=== PATIENT | male | born 1955 | race Native Hawaiian/Other Pacific Islander ===

== ENCOUNTER 2016-07-08 14:09 | Emergency (ER) | payer OTHER ==
[~2016-07-08] VITALS: Ht 177.8 cm; Wt 51.7 kg
[~2016-07-08 14:09] MED LIST: AMLO5TAB PO; ASPIRIN LOW DOS81 MG PO; CREON24000 UNT OR; FOLI1TAB26 PO; INSUINJ20 SC; KLOR-CON 1010 MEQ OR; MAG OXIDE420 MG OR; METF500T PO; METOPROLOL25 M1 OR; MORP15TA10 PO; MULTI VITAMN OR; MULTIVITAMIN OR; NEURONTIN 100M100 MG OR; NOVOLIN N1 ML SC; OMEP20CA PO; OMEPRAZOLE20 M1 PO; OXYC5TAB53 PO; POLY3350 PO; ROBAXIN500 MG PO; THIA100T8 PO; TYLENOL325 MG OR; ZOFRAN8 MG PO
[2016-07-08 14:15] VITALS: BP 129/94; TEMP 98.5
== END 2016-07-08 14:52 | disposition home or self-care (01) ==
LOC: ED 14:09
DX: K86.1 Other chronic pancreatitis (principal); S62.91XA Unspecified fracture of right hand, initial encounter for closed fracture
CPT/HCPCS: 96372; 99282; J1885

== ENCOUNTER 2017-05-04 07:06 | Inpatient (IN) | payer OTHER ==
[2017-05-04] VITALS (19 sets, daily range): BP systolic 113–160; BP diastolic 69–97; TEMP 97–98.5; Ht 177.8 cm; Wt 54.2 kg
[~2017-05-04] VITALS: Ht 177.8 cm; Wt 54.2 kg
[2017-05-04] MEDS ORDERED: LANTUS100 MG/ML SC (07:23)
[2017-05-04 07:50] LABS: PLATELET COUNT 417 K/uL (142-355)
[2017-05-04 07:52] LABS: POTASSIUM 4.5 mmol/L (3.6-5.2)
[2017-05-04] MEDS ORDERED: PREG75CA PO (09:50)
[2017-05-04] MEDS ORDERED: OMEPRAZOLE20 M2 PO (09:51)
--- NOTE | 2017-05-04 13:05 | NUR ---
PT TO ICU2 VIA WC FROM ER ADMITTED TO THE HOSPITALIST. PT WITH SL 20G INSYTE RAC SALINE LOCKED.
--- NOTE | 2017-05-04 14:02 | NUR ---
INSULIN LOADING DOSE 5U IV GIVEN PER PROTOCOL,INSULIN DRIP STARTED AT 8U/HR.
--- NOTE | 2017-05-04 15:10 | NUR ---
PT WITH BS 245,CLARIFIED CHANGE ORDER FOR D51/2NS AT [address] JEFFERSON.
--- NOTE | 2017-05-04 15:35 | NUR ---
IV 18G INSYTE INSERTED R HAND X 2 STICKS,LABS DRAWN.
[2017-05-04 16:14] LABS: POTASSIUM 4.5 mmol/L (3.6-5.2)
--- NOTE | 2017-05-04 16:16 | NUR ---
PT SCATCHING AT HIS FEET,PT STATES'ITS BECAUSE OF MY NEUROPATHY'.PT'S HOME MED FOR THIS IS [facility].REPORTED TO LACEY WHEATLEY LPN/ASAEL FOR JEFFY MERRITT BIOMEDICAL ELECTRONICS TECHNICIAN.
--- NOTE | 2017-05-04 16:31 | NUR ---
LABS CALLED TO DR JEFFERSON. ORDER TO D/C INSULIN DRIP START NS AT 50 ML/HR KVO. WILL ORDER A DIET & START HOME INSULIN.
--- NOTE | 2017-05-04 17:05 | NUR ---
PT MEDICATED FOR ITCHING FEET WITH BENADRYL 25 MG IVP.
--- NOTE | 2017-05-04 18:02 | NUR ---
PT WITH BS 66,PT EATING SUPPER.NO NAUSEA & C/O PAIN.
--- NOTE | 2017-05-04 20:02 | NUR ---
PT AWAKE AND ORIENTED WATCHING TV IN BED, DENIES ANY PAIN OR PROBLEMS AT THIS TIME, TALKATIVE WITH COTTON PROGRAM TECHNICIAN, RESP RATE NONLABORED ON ROOM AIR, URINAL AT BEDSIDE, SKIN WARM AND DRY, 20G IV INTACT TO R AC WITH NS INFUSING AT 50ML/HR AND 18G IV LOCK INTACT TO L HAND WITH NO PROBLEMS NOTED, ENCOURAGED TO CALL NEEDED, RAILS UP X2, BED IN LOW POSITION, WILL MONITOR CLOSELY.
[2017-05-04 20:34] LABS: POTASSIUM 4.4 mmol/L (3.6-5.2)
[2017-05-05] VITALS (23 sets, daily range): BP systolic 82–152; BP diastolic 62–99; TEMP 97.8–98.8
[2017-05-05 01:28] LABS: POTASSIUM 3.9 mmol/L (3.6-5.2)
--- NOTE | 2017-05-05 01:29 | NUR ---
01041BK AWAKE WATCHING TV WITH NO S/S OF PAIN OR DISTRESS NOTED, RESP RATE NONLABORED, ON ROOM AIR, 20G IV INTACT TO R AC WITH NS INFUSING AT 50M/HR AND 18G IV LOCK INTACT TO L HAND WITH NO PROBLEMS NOTED, URINAL AT BEDSIDE, DENIES ANY PAIN OR PROBLEMS AT THIS TIME, WILL MONITOR, RAILS UP, BED IN LOW POSITION. LABS DRAW PER ORDERS, PT TOLERATED WITH NO PROBLEMS.
--- NOTE | 2017-05-05 02:02 | NUR ---
0150SPOKE WITH DR. JEFFERSON ABOUT PT'S LAB RESULTS. ACETONE LEVEL IS SMALL. GLUCOSE 245. NEW ORDER TO GET ANOTHER ACETONE LEVEL WITH MORNING LABS. T.O. R&V DR. JEFFERSON/SHAMAR COREY RN.
--- NOTE | 2017-05-05 02:04 | NUR ---
05/04/17 AT 2208PT AWAKE WATCHING TV, NO S/S OF PAIN OR DISTRESS NOTED, BOTH IV SITES INTACT, RESP RATE NONLABORED, ALERT AND ORIENTED, WILL MONITOR, RAILS UP, BED IN LOW POSITION, ENCOURAGED TO CALL NEEDED.
--- NOTE | 2017-05-05 02:07 | NUR ---
PT RESTING ON L SIDE WITH EYES CLOSED, NO S/S OF PAIN OR DISTRESS NOTED, RESP RATE NONLABORED ON ROOM AIR, IV LOCK INTACT TO L HAND AND IV INTACT TO R AC WITH NS INFUSING AT 50ML/HR, TRANSPORTATION PLANNING ENGINEER IN USE, URINAL AT BEDSIDE, WILL MONITOR CLOSELY, RAILS UP, BED IN LOW POSITION.
--- NOTE | 2017-05-05 03:01 | NUR ---
DR. JEFFERSON IN TO CHECK ON PT. NO NEW ORDERS AT THIS TIME. PT RESTING ON L SIDE WITH EYES CLOSED, NO DISTRESS NOTED, WILL CONTINUE TO MONITOR CLOSELY, RAILS UP, BED IN LOW POSITION.
[2017-05-05 04:47] LABS: PLATELET COUNT 387 K/uL (142-355)
[2017-05-05 05:01] LABS: POTASSIUM 3.8 mmol/L (3.6-5.2)
--- NOTE | 2017-05-05 05:06 | NUR ---
PT STATES HE IS FEELING BETTER AND IS NOT SWEATING ANY MORE, SKIN COLOR TO FACE IS COMING BACK AND IS NOW PINK. HEART RATE 90 AND IRREGULAR. STAFF REMAINS AT BEDSIDE, WILL MONITOR CLOSEY, RAILS UP, BED IN LOW POSITION. PT PT NOW WATCHING TV. IV SITES INTACT.
--- NOTE | 2017-05-05 05:14 | NUR ---
0430EKG COMPLETED, RESULTS STATE ATRIAL FIB WITH RAPID V-RATE, RBBB AND LAFB. RATE OF 193. PT STATES HE IS STILL FEELING FINE. NO S/S OF DISTRESS NOTED.
--- NOTE | 2017-05-05 05:16 | NUR ---
0419NOTED CHANGE IN RHYTHM ON CASH MANAGEMENT SPECIALIST, RATE IN 120-140S, NO S/S OF DISTRESS NOTED, PT STATES HE FEELS FINE AND HIS HEART DOES NOT FEEL FUNNY OR LIKE IT IS RACING. SKIN WARM, PINK, AND DRY.
--- NOTE | 2017-05-05 05:19 | NUR ---
0432WRITER SPOKE WITH DR. JEFFERSON ABOUT CHANGE IN ON ATHLETICS DIRECTOR AND RESULTS OF EKG, NEW ORDER FOR STAT MAGNESIUM LEVEL. T.O. R&V DR. JEFFERSON/SHAMAR COREY RN.
--- NOTE | 2017-05-05 05:21 | NUR ---
0440LAB WORK DRAWN. PT NOW PALE AND SWEAT VISIBLE ON HIS NECK AND FOREHEAD. STATES HE FEELS OKAY JUST FEELS LIKE HE IS SWEATING ALOT. WHEN ASKED STATES HE DOES NOT FEEL LIKE HIS SUGAR IS LOW. GAVE PT 120ML ORANGE JUICE JUST INCASE HIS SUGAR IS LOW. HEART RATE REMAINS ELEVATED.
--- NOTE | 2017-05-05 05:33 | NUR ---
0520MAGNESIUM LEVEL AND MORNING LABS RESULTS ARE NOW BACK. REPORTED NORMAL MAG OF 2.0, NEGATIVE ACETONE LEVEL, AND GLUCOSE LEVEL OF [address] JEFFERSON. STATES JUST TO FEED PT AND MONITOR. 0525PT NOW SITTING UP ON SIDE OF BED, BROUGHT SNACK. ATE PACK OF ERIN CRACKERS AND DRANK A MILK. STATES HE CONTINUES TO FEEL BETTER. HEART RATE OF 85, RESP RATE NORMAL AND NONLABORED, O2 SAT 97% ON ROOM AIR. WILL CONTINUE TO MONITOR CLOSELY.
--- NOTE | 2017-05-05 09:15 | NUR ---
GILBERT/PLUG OVERWRAP MACHINE TENDER IN TO SEE PT
[2017-05-05 14:19] LABS: POTASSIUM 4.2 mmol/L (3.6-5.2)
--- NOTE | 2017-05-05 22:13 | NUR ---
PT WAS TRANSFERRED TO ROOM 1113. PT AMBULATED . REPORT WAS GIVEN TO Korin SPENCE RN.
[2017-05-06] VITALS: BP 177/79; TEMP 98.5
[2017-05-06 04:00] VITALS: BP 124/70; TEMP 97.9
[2017-05-06 05:19] LABS: PLATELET COUNT 233 K/uL (142-355)
[2017-05-06 05:43] LABS: POTASSIUM 4.1 mmol/L (3.6-5.2)
[2017-05-06 08:37] VITALS: BP 136/84; TEMP 99
[2017-05-06 12:37] VITALS: BP 118/86; TEMP 98.4
--- NOTE | 2017-05-06 16:21 | NUR ---
IV TO L HAND D/C'D WITH TIP INTACT. PRESSURE DRESSING APPLIED. IV INFILTRATED. IVFS INFUSING VIA IV TO RAC.
[2017-05-06 17:32] VITALS: BP 117/66; TEMP 98.5
[2017-05-06 20:00] VITALS: BP 133/70; TEMP 98.4
[2017-05-07] VITALS: BP 119/74; TEMP 98.5
[2017-05-07 04:00] VITALS: BP 124/70; TEMP 98.2
[2017-05-07 06:22] LABS: PLATELET COUNT 256 K/uL (142-355)
[2017-05-07 06:51] LABS: POTASSIUM 4.1 mmol/L (3.6-5.2)
[2017-05-07 08:00] VITALS: BP 120/92; TEMP 98
[2017-05-07] MEDS ORDERED: PANT40IN PO (10:27)
[2017-05-07] MEDS ORDERED: SUCRALFATE1 GM PO (10:27)
[2017-05-07 12:00] VITALS: BP 158/82; TEMP 98.8
[2017-05-07] MEDS ORDERED: CARAFATE1 GM PO (12:18)
[2017-05-07] MEDS ORDERED: PANTOPRAZOLE 40MG TA PO (12:18)
[2017-07-24] MEDS ORDERED: CREON24000 UNT PO (08:06)
[2017-07-24] MEDS ORDERED: LIPITOR80 MG PO (08:06)
[2017-07-24] MEDS ORDERED: AMLODIPINE BESYLATE PO (08:07)
[2017-07-24] MEDS ORDERED: PROMETHAZINE HC50 MG PO (08:08)
[2017-07-24] MEDS ORDERED: ASCORBIC ACD500 MG PO (08:11)
[2017-07-24] MEDS ORDERED: FERROUS SULF325 M1 PO (08:11)
[2017-07-24] MEDS ORDERED: MAG OXIDE420 MG PO (08:13)
[2017-07-24] MEDS ORDERED: LANTUS100 MG/ML SC ×2 (08:14)
[2017-07-25] MEDS ORDERED: FLEET ENEMA RE (13:12)
== END 2017-05-07 12:25 | disposition home or self-care (01) | DRG 639 ==
LOC: ED 07:06 → MED/SURG 12:32 → ICU 12:32 → MED/SURG 05-05 22:00 → ICU 05-05 22:00 → MED/SURG 05-07 12:25
PROVIDERS: Family Medicine; ADMIT Specialist
DX: E11.10 Type 2 diabetes mellitus with ketoacidosis without coma (principal); R10.11 Right upper quadrant pain; R10.12 Left upper quadrant pain
CPT/HCPCS: 36415; 36600; 74022; 80048; 80053; 80061; 81002; 82150; 82805; 82947; 82948; 82962; 83690; 83735; 85027; 93005; 96365; 96366; 96372; 96375; 99285; J1170; J1200; J1644; J1815; J1885; J2175; J2405; J3490

== ENCOUNTER 2017-06-04 17:05 | Emergency (ER) | payer OTHER ==
[~2017-06-04] VITALS: Ht 177.8 cm; Wt 53.5 kg
[~2017-06-04 17:05] MED LIST changes: +CARAFATE1 GM PO; +LANTUS100 MG/ML SC; +OMEPRAZOLE20 M2 PO; +PANT40IN PO; +PANTOPRAZOLE 40MG TA PO; +PREG75CA PO; +SUCRALFATE1 GM PO
[2017-06-04 17:44] LABS: PLATELET COUNT 396 K/uL (142-355)
[2017-06-04 17:51] LABS: POTASSIUM 4.5 mmol/L (3.6-5.2)
[2017-06-04 19:55] VITALS: BP 121/65; TEMP 97.9
[2017-07-24] MEDS ORDERED: LIPITOR80 MG PO (08:06)
[2017-07-24] MEDS ORDERED: CREON24000 UNT PO (08:06)
[2017-07-24] MEDS ORDERED: AMLODIPINE BESYLATE PO (08:07)
[2017-07-24] MEDS ORDERED: PROMETHAZINE HC50 MG PO (08:08)
[2017-07-24] MEDS ORDERED: FERROUS SULF325 M1 PO (08:11)
[2017-07-24] MEDS ORDERED: ASCORBIC ACD500 MG PO (08:11)
[2017-07-24] MEDS ORDERED: MAG OXIDE420 MG PO (08:13)
[2017-07-24] MEDS ORDERED: LANTUS100 MG/ML SC ×2 (08:14)
[2017-07-25] MEDS ORDERED: FLEET ENEMA RE (13:12)
== END 2017-06-04 19:55 | disposition short-term general hospital (02) ==
LOC: ED 17:05
DX: E11.65 Type 2 diabetes mellitus with hyperglycemia (principal); E87.1 Hypo-osmolality and hyponatremia; R00.0 Tachycardia, unspecified
CPT/HCPCS: 36415; 80053; 80307; 80320; 80329; 81000; 81002; 82150; 82550; 82947; 83605; 83690; 84484; 85027; 93005; 96361; 96365; 96374; 96375; 96376; 99284; J1815; J2175; J2405; J3490

== ENCOUNTER 2017-06-04 20:03 | Outpatient (CLI) | payer OTHER ==
[2017-07-24] MEDS ORDERED: CREON24000 UNT PO (08:06)
[2017-07-24] MEDS ORDERED: LIPITOR80 MG PO (08:06)
[2017-07-24] MEDS ORDERED: AMLODIPINE BESYLATE PO (08:07)
[2017-07-24] MEDS ORDERED: PROMETHAZINE HC50 MG PO (08:08)
[2017-07-24] MEDS ORDERED: ASCORBIC ACD500 MG PO (08:11)
[2017-07-24] MEDS ORDERED: FERROUS SULF325 M1 PO (08:11)
[2017-07-24] MEDS ORDERED: MAG OXIDE420 MG PO (08:13)
[2017-07-24] MEDS ORDERED: LANTUS100 MG/ML SC ×2 (08:14)
[2017-07-25] MEDS ORDERED: FLEET ENEMA RE (13:12)
== END 2017-06-04 21:30 | disposition short-term general hospital (02) ==
LOC: AMB 20:03
DX: E11.65 Type 2 diabetes mellitus with hyperglycemia (principal); E87.1 Hypo-osmolality and hyponatremia; R00.0 Tachycardia, unspecified
CPT/HCPCS: A0425; A0427

== ENCOUNTER 2017-06-09 21:17 | Emergency (ER) | payer OTHER ==
[~2017-06-09] VITALS: Ht 177.8 cm; Wt 54.4 kg
[2017-06-09 21:50] VITALS: BP 136/82; TEMP 97.9
[2017-06-09 22:43] LABS: PLATELET COUNT 252 K/uL (142-355)
[2017-06-10 00:10] LABS: POTASSIUM 3.9 mmol/L (3.6-5.2)
[2017-07-24] MEDS ORDERED: LIPITOR80 MG PO (08:06)
[2017-07-24] MEDS ORDERED: CREON24000 UNT PO (08:06)
[2017-07-24] MEDS ORDERED: AMLODIPINE BESYLATE PO (08:07)
[2017-07-24] MEDS ORDERED: PROMETHAZINE HC50 MG PO (08:08)
[2017-07-24] MEDS ORDERED: FERROUS SULF325 M1 PO (08:11)
[2017-07-24] MEDS ORDERED: ASCORBIC ACD500 MG PO (08:11)
[2017-07-24] MEDS ORDERED: MAG OXIDE420 MG PO (08:13)
[2017-07-24] MEDS ORDERED: LANTUS100 MG/ML SC ×2 (08:14)
[2017-07-25] MEDS ORDERED: FLEET ENEMA RE (13:12)
== END 2017-06-10 00:29 | disposition home or self-care (01) ==
LOC: ED 21:17
DX: E11.65 Type 2 diabetes mellitus with hyperglycemia (principal)
CPT/HCPCS: 80053; 82150; 83690; 85027; 96372; 99283; J1815

== ENCOUNTER 2017-09-04 05:05 | Emergency (ER) | payer OTHER ==
[~2017-09-04] VITALS: Ht 177.8 cm; Wt 56.7 kg
[~2017-09-04 05:05] MED LIST changes: +AMLODIPINE BESYLATE PO; +ASCORBIC ACD500 MG PO; +CREON24000 UNT PO; +FERROUS SULF325 M1 PO; +FLEET ENEMA RE; +LIPITOR80 MG PO; +MAG OXIDE420 MG PO; +PROMETHAZINE HC50 MG PO
[2017-09-04 06:34] VITALS: BP 138/87; TEMP 98.7
== END 2017-09-04 06:36 | disposition home or self-care (01) ==
LOC: ED 05:05
DX: M54.89 Other dorsalgia (principal)
CPT/HCPCS: 96372; 99283; J1885

== ENCOUNTER 2018-03-09 20:48 | Observation (INO) | payer OTHER ==
[~2018-03-09] VITALS: Ht 177.8 cm; Wt 60.0 kg
[2018-03-09 20:55] VITALS: BP 131/72; TEMP 97.7
[2018-03-09 21:41] LABS: PLATELET COUNT 385 K/uL (142-355)
[2018-03-09 21:46] LABS: POTASSIUM 4.5 mmol/L (3.6-5.2); SODIUM 137 mmol/L (136-145)
[2018-03-09 22:00] VITALS: BP 128/85
[2018-03-09 23:00] VITALS: BP 123/78
[2018-03-10] VITALS (8 sets, daily range): BP systolic 126–168; BP diastolic 71–92; TEMP 97.9–98.6; Ht 177.8 cm; Wt 60.0 kg
[2018-03-10 12:03] LABS: PLATELET COUNT 249 K/uL (142-355)
[2018-03-10 12:18] LABS: POTASSIUM 4.2 mmol/L (3.6-5.2)
[2018-03-11] VITALS (7 sets, daily range): BP systolic 121–173; BP diastolic 62–88; TEMP 97.8–98.7
[2018-03-11 05:25] LABS: PLATELET COUNT 247 K/uL (142-355)
[2018-03-11 05:52] LABS: POTASSIUM 3.9 mmol/L (3.6-5.2)
--- NOTE | 2018-03-11 15:00 | NUR ---
PT SURGER 44. PT GIVEN ORANGE JUICE AND ERIN CRACKERS. PT BS CAME UP TO TP 91 30 MIN LATER.
[2018-03-12 04:00] VITALS: BP 135/75; TEMP 98.7
[2018-03-12 05:54] LABS: PLATELET COUNT 240 K/uL (142-355)
[2018-03-12 06:29] LABS: POTASSIUM 3.1 mmol/L (3.6-5.2)
--- NOTE | 2018-03-12 07:30 | NUR ---
PT BS 125. PT HAS ORDER FOR 5 UNITS NPH AT 0700 AND LEVEMIR 10 UNITS AT 0900. MARISOL TY NOTIFIED OF PT SUGAR. BRITT STATES WE CAN HOLD THE NPH BUT CONTINUE THE LEVEMIR AND SLIDING SCALE
[2018-03-12 07:35] VITALS: BP 154/72; TEMP 98.8
[2018-03-12] MEDS ORDERED: LEVO250T2 PO (10:30)
[2018-03-12] MEDS ORDERED: METRONIDAZOL500 MG PO (10:31)
--- NOTE | 2018-03-12 11:12 | NUR ---
IV DC TIP INTACT. PT GIVEN DISCHARGE INSTRUCTIONS. PT TO F/U WITH PCP IN 1 WEEK. PT TO START LEVOQUIN 750 MG PO QAM AND FLAGYL 500 MG PO TID. PT INSTRUCTED ON FOLLOWING A LOW CARB, LOW SUGAR DIET FOR LIABLE DM AND TO AVOID SEEDS, CORN AND NUTS FOR DIVERTICULITIS. PVT VERBALIZES UNDERSTANDING. PT HAS NO FURTHER QUESTIONS. PT D/C VIA AMBULATORY
== END 2018-03-12 11:15 | disposition home or self-care (01) ==
LOC: ED 20:48 → MED/SURG 03-10 00:45
PROVIDERS: Family Medicine
DX: K86.1 Other chronic pancreatitis (principal); K21.9 Gastro-esophageal reflux disease without esophagitis; E83.42 Hypomagnesemia; E11.65 Type 2 diabetes mellitus with hyperglycemia; Z79.4 Long term (current) use of insulin; I10 Essential (primary) hypertension
CPT/HCPCS: 36415; 80053; 81000; 81002; 82150; 82550; 82553; 82948; 82962; 83690; 84484; 85027; 93005; 94760; 96361; 96365; 96366; 96367; 96372; 96375; 99220; 99284; G0378; J0295; J1650; J1815; J2175; J2405; J3490; Q9963

== ENCOUNTER 2018-04-16 06:08 | Emergency (ER) | payer OTHER ==
[~2018-04-16] VITALS: Ht 177.8 cm; Wt 59.9 kg
[~2018-04-16 06:08] MED LIST changes: +LEVO250T2 PO; +METRONIDAZOL500 MG PO
[2018-04-16 06:23] VITALS: BP 141/71; TEMP 97.2
[2018-04-16 06:48] LABS: POTASSIUM 3.2 mmol/L (3.6-5.2)
[2018-04-16 06:57] LABS: PLATELET COUNT 333 K/uL (142-355)
== END 2018-04-16 13:20 | disposition short-term general hospital (02) ==
LOC: ED 06:08
PROVIDERS: Emergency Medicine
DX: R10.84 Generalized abdominal pain (principal); K31.1 Adult hypertrophic pyloric stenosis; Z98.890 Other specified postprocedural states
CPT/HCPCS: 36415; 80053; 81000; 82150; 83690; 85027; 96374; 96375; 96376; 99284; J1885; J2175; J2550; Q9963

== ENCOUNTER 2018-04-16 13:22 | Outpatient (CLI) | payer OTHER | END 2018-04-16 15:50 | disposition short-term general hospital (02) | LOC: AMB 13:22 | DX: R10.84 Generalized abdominal pain (principal); K31.1 Adult hypertrophic pyloric stenosis; Z98.890 Other specified postprocedural states | CPT/HCPCS: A0425; A0427 ==

== ENCOUNTER 2018-06-18 11:36 | Emergency (ER) | payer OTHER ==
[~2018-06-18] VITALS: Ht 177.8 cm; Wt 59.9 kg
[2018-06-18 11:58] VITALS: TEMP 97.7
[2018-06-18 13:24] LABS: PLATELET COUNT 291 K/uL (142-355)
[2018-06-18 13:30] LABS: POTASSIUM 3.7 mmol/L (3.6-5.2)
[2018-06-18 14:18] VITALS: BP 152/84
== END 2018-06-18 14:20 | disposition home or self-care (01) ==
LOC: ED 11:36
PROVIDERS: Family Medicine
DX: K85.90 Acute pancreatitis without necrosis or infection, unspecified (principal)
CPT/HCPCS: 80053; 81000; 82150; 83690; 85027; 96360; 99282; J1885